=== PATIENT | male | born 1980 | race African-American/Black ===

== ENCOUNTER 2020-08-26 23:33 | Emergency (ER) | payer OTHER ==
[~2020-08-26] VITALS: Ht 172.7 cm; Wt 90.0 kg
[2020-08-27 00:31] VITALS: BP 128/85
[2020-08-27] MEDS ORDERED: LIDOCAINE 2% Multi-Dose 20 ML VIAL. IJ ONE (01:45)
[2020-08-27] MEDS ORDERED: NEOMY/BACITR/POLYMYXIN OINT PACKET. TP ONE (02:15)
--- NOTE | 2020-08-27 02:18 | ED.ADGEN ---
Past Medical History Past Medical History: No Pertinent History Past Surgical History: No Surgical History Smoking Status: Current Every Day Smoker Alcohol Use: Heavy General Adult EDM: Chief Complaint: LACERATION/AVULSION HPI: HPI: Patient is a 40 year old laceration to right index finger. Patient was cutting muscles with a knife. Last tetanus 2 3 years ago. No other complaints Review of Systems: Review of Systems: All other systems within normal limits except for as noted in the HPI Current Medications: Current Medications Medications (Trade) Dose Ordered Sig/Madan Start Time Stop Time Status Last Admin Dose Admin Lidocaine HCl (Lidocaine 2% 20ml Vial) 20 ml 1X ONCE 08/27/20 01:45 08/27/20 01:49 DC 08/27/20 01:55 20 ML Neomycin/ Polymyxin/ Bacitracin (Triple Antibiotic Ointment) 1 pkt 1X ONCE 08/27/20 02:15 08/27/20 02:16 DC Allergies: Allergies: Allergies Coded Allergies Type Severity Reaction Last Updated Verified No Known Drug Allergies 08/27/20 No Physical Exam: PE: Constitutional: Well developed, well nourished, no acute distress, non-toxic appearance. [] HENT: Normocephalic, atraumatic, bilateral external ears normal, nose normal. [] Eyes: PERRLA, conjunctiva normal, no discharge. [] Neck: No rigidity, supple, no stridor. [] Cardiovascular: Regular rate and rhythm, brisk cap refill [] Lungs & Thorax: Non labored symmetric respirations, no tachypnea or respiratory distress [] Abdomen: Soft, nondistended. Skin: Warm, dry, no erythema, no rash. 2 similar laceration [] Back: Unremarkable Extremities: No deformities, range of motion grossly intact, no lower extremity edema [] Neurologic: Alert and oriented X 3, no focal deficits noted. [] Psychologic: Affect normal, judgement normal, mood normal. [] Current Patient Data: Vital Signs: Vital Signs Date Time Temp Pulse Resp B/P (MAP) Pulse Ox O2 Delivery O2 Flow Rate FiO2 08/27/20 00:31 98.4 99 18 128/85 (99) 99 Room Air 98.4 EKG: EKG: [] Heart Score: C/O Chest Pain: No Risk Factors: Risk Factors: DM, Current or recent (<one month) smoker, HTN, HLP, family history of CAD, obesity. Risk Scores: Score 0 - 3: 2.5% MACE over next 6 weeks - Discharge Home Score 4 - 6: 20.3% MACE over next 6 weeks - Admit for Clinical Observation Score 7 - 10: 72.7% MACE over next 6 weeks - Early Invasive Strategies Radiology/Procedures: Radiology/Procedures: Patient was prepped and draped in normal fashion, wound irrigated and cleansed with normal saline. The 2 cm wound was anesthetized with lidocaine 2% without epi. Depth of wound was examined and [] foreign bodies found. Wound was approximated with 4-0 Ethilon suture in a horizontal mattress pattern. [] Sutures placed without complication. Wound was [] dressed a nonadherent castro ge [] Course & Med Decision Making: Course & Med Decision Making Pertinent Labs and Imaging studies reviewed. (See chart for details) [] Dragon Disclaimer: Dragon Disclaimer: This electronic medical record was generated, in whole or in part, using a voice recognition dictation system. Departure Departure Impression: Primary Impression: Finger laceration Disposition: 01 HOME / SELF CARE / HOMELESS Condition: STABLE Referrals: NO PCP (PCP) Patient Instructions: Laceration Care, Adult Additional Instructions: Have sutures removed in 7 to 10 days MIKAYLA BRADFORD MD Aug 27, 2020 02:18
== END 2020-08-27 02:38 | disposition home or self-care (01) ==
LOC: ER 23:33
DX: S61.021A Laceration with foreign body of right thumb without damage to nail, initial encounter (principal); F17.200 Nicotine dependence, unspecified, uncomplicated; F10.20 Alcohol dependence, uncomplicated; Y90.9 Presence of alcohol in blood, level not specified; W26.0XXA Contact with knife, initial encounter; Y93.89 Activity, other specified; Y92.89 Other specified places as the place of occurrence of the external cause; Y99.8 Other external cause status
CPT/HCPCS: 12001; 29130; 99283